=== PATIENT | male | born 1960 | race Caucasian/White ===

== ENCOUNTER 2016-09-16 21:06 | Inpatient (IN) | payer OTHER ==
[2016-09-16 22:00] LABS: BASOPHIL 0.7 % (0-2); EOSINOPHIL 1.5 % (0-5); HCT 30.1 % (42.0-52.0); LYMPHOCYTE 26.3 % (15-48); MCH 32.4 pg (25.0-31.0); MCHC 36.5 g/dL (32.0-36.0); MCV 88.8 fL (78.0-100.0); MONOCYTE 20.5 % (0-12); MPV 8.6 fL (6.0-9.5); PLT 174 K/uL (150-400); RBC 3.39 M/uL (4.70-6.00); RDW 20.9 % (11.5-14.0); WBC 4.1 K/uL (4.0-10.5)
[2016-09-16 22:19] LABS: ANISOCYTOSIS SLIGHT; BAND 3 % (0-10); EOSINOPHIL(M) 2 % (0-5); LYMPHOCYTE(M) 23 % (15-48); MONOCYTE(M) 15 % (0-12); NEUTROPHILS(M) 57 % (41-80); NRBC 1; PLATELET ESTIMATE NORMAL; PLATELET MORPHOLOGY NORMAL; TOTAL CELL COUNT 100
[2016-09-16 22:20] LABS: POLYCHROMASIA SLIGHT
[2016-09-16 22:21] LABS: BILIRUBIN - TOTAL 0.9 mg/dL (0.1-1.0); CREATININE 1.2 mg/dL (0.7-1.2); GLOBULIN (CALCULATION) 2.7 g/dL (2.2-4.2); POTASSIUM 2.7 mmol/L (3.5-5.1); TOTAL PROTEIN 6.7 g/dL (6.4-8.3)
[2016-09-16 22:23] LABS: LACTIC ACID 2.8 mmol/L (0.5-2.2)
[2016-09-16 23:17] LABS: BILIRUBIN NEGATIVE (NEGATIVE); BLOOD NEGATIVE Ery/uL (NEGATIVE); CLARITY CLEAR (CLEAR); COLOR YELLOW (YELLOW); GLUCOSE (U) NORMAL (NORMAL); KETONE (U) NEGATIVE (NEGATIVE); LEUKOCYTES NEGATIVE Leu/uL (NEGATIVE); NITRITE NEGATIVE (NEGATIVE); PROTEIN NEGATIVE (NEGATIVE)
[2016-09-17 04:50] LABS: BASOPHIL 0 % (0-2); EOSINOPHIL 0 % (0-5); HCT 27.7 % (42.0-52.0); HGB 9.9 g/dl (13.2-18.0); LYMPHOCYTE 17.5 % (15-48); MCH 32.1 pg (25.0-31.0); MCHC 35.7 g/dL (32.0-36.0); MCV 89.9 fL (78.0-100.0); MONOCYTE 2.4 % (0-12); MPV 8.7 fL (6.0-9.5); NEUTROPHIL 80.1 % (41-80); PLT 157 K/uL (150-400); RBC 3.08 M/uL (4.70-6.00); RDW 21.1 % (11.5-14.0); WBC 2.5 K/uL (4.0-10.5)
[2016-09-17 05:04] LABS: CREATININE 1.1 mg/dL (0.7-1.2); POTASSIUM 2.8 mmol/L (3.5-5.1)
[2016-09-18 04:42] LABS: HCT 24.8 % (42.0-52.0); HGB 8.6 g/dl (13.2-18.0); MCH 31.6 pg (25.0-31.0); MCHC 34.7 g/dL (32.0-36.0); MCV 91.2 fL (78.0-100.0); MPV 8.9 fL (6.0-9.5); RBC 2.72 M/uL (4.70-6.00); RDW 21.8 % (11.5-14.0)
[2016-09-18 04:50] LABS: INR 1.46 (0.9-1.2); PROTHROMBIN TIME 17.2 SECONDS (11.7-14.0)
[2016-09-18 04:57] LABS: POTASSIUM 3.1 mmol/L (3.5-5.1)
[2016-09-18] MEDS ORDERED: ELAVIL25 MG PO (13:54)
[2016-09-18] MEDS ORDERED: LOZOL2.5 MG PO (13:54)
[2016-09-18] MEDS ORDERED: EFFEXOR XR75 MG PO (13:54)
[2016-09-18] MEDS ORDERED: PROTONIX 40MG T40 MG PO (13:55)
[2016-09-18] MEDS ORDERED: FOSAMAX70 MG PO (13:55)
[2016-09-18] MEDS ORDERED: ZYRTEC10 MG PO (13:55)
[2016-09-18] MEDS ORDERED: DICYCLOMINE HCL20 MG PO (13:55)
[2016-09-18] MEDS ORDERED: LOPRESSOR50 MG PO (13:55)
[2016-09-18] MEDS ORDERED: COMPAZINE10 MG PO (13:56)
[2016-09-18] MEDS ORDERED: PHENERGAN25 M1 PO (13:56)
[2016-09-18] MEDS ORDERED: KLONOPIN0.5 MG PO (13:56)
[2016-09-18] MEDS ORDERED: BENADRYL25 MG PO (13:56)
[2016-09-18] MEDS ORDERED: FLONASE ALLER15.8 ML (13:56)
[2016-09-18] MEDS ORDERED: XARELTO15 MG PO (13:57)
== END 2016-09-18 14:15 | disposition home or self-care (01) | DRG 176 ==
LOC: FER 21:06 → FTCU 09-17 01:35
PROVIDERS: Emergency Medicine Emergency Medical Services; ADMIT Internal Medicine
DX: I26.99 Other pulmonary embolism without acute cor pulmonale (principal); E87.3 Alkalosis; C34.92 Malignant neoplasm of unspecified part of left bronchus or lung; B19.10 Unspecified viral hepatitis B without hepatic coma; I10 Essential (primary) hypertension; D63.8 Anemia in other chronic diseases classified elsewhere; E87.6 Hypokalemia; K21.9 Gastro-esophageal reflux disease without esophagitis; M81.0 Age-related osteoporosis without current pathological fracture; K58.9 Irritable bowel syndrome, unspecified; Z79.899 Other long term (current) drug therapy; Z88.8 Allergy status to other drugs, medicaments and biological substances; Z87.891 Personal history of nicotine dependence
CPT/HCPCS: 36415; 36600; 71010; 71275; 80048; 80053; 81003; 82803; 83605; 84484; 85025; 85610; 87040; 87088; 93005; 93970; 94640; 94760; 96372; J1170; J2930; Q9967

== ENCOUNTER 2020-07-05 14:47 | Emergency (ER) | payer MEDICARE ==
[~2020-07-05 14:47] MED LIST: AUGMENTIN 875-1 EACH PO; BACTRIM DS TAB1 EACH PO; BENADRYL25 MG PO; BUMEX1 MG PO; COMPAZINE10 MG PO; DICYCLOMINE HCL20 MG PO; EFFEXOR XR75 MG PO; ELAVIL25 MG PO; FLONASE ALLER15.8 ML; FOSAMAX70 MG PO; IRON325 M1 PO; K-DUR20 MEQ PO; KLONOPIN0.5 MG PO; LASIX40 MG PO; LIPITOR20 MG PO; LOPRESSOR50 MG PO; LOZOL2.5 MG PO; MIRAPEX0.25 MG PO; PHENERGAN25 M1 PO; PLAVIX75 MG PO; PREDNISONE 20MG20 MG PO; PROAIR HFA8.5 GM INH; PROTONIX 40MG T40 MG PO; SINGULAIR10 MG PO; TESSALON PERLE100 M1 PO; XARELTO15 MG PO; ZYRTEC10 MG PO
[2020-07-05 16:23] LABS: BASOPHIL 0.8 % (0-2); BILIRUBIN NEGATIVE (NEGATIVE); BLOOD NEGATIVE Ery/uL (NEGATIVE); CLARITY CLEAR (CLEAR); COLOR YELLOW (YELLOW); EOSINOPHIL 2.1 % (0-5); GLUCOSE (U) TRACE mg/dL (NORMAL); HCT 46.3 % (42.0-52.0); HGB 15.2 g/dl (13.2-18.0); LEUKOCYTES NEGATIVE Leu/uL (NEGATIVE); LYMPHOCYTE 15.9 % (15-48); MCHC 32.8 g/dL (32.0-36.0); MCV 85.3 fL (78.0-100.0); MONOCYTE 6.7 % (0-12); MPV 10.4 fL (6.0-9.5); NEUTROPHIL 73.3 % (41-80); NITRITE NEGATIVE (NEGATIVE); NRBC 0; PLT 170 K/uL (150-400); PROTEIN NEGATIVE (NEGATIVE); RBC 5.43 M/uL (4.70-6.00); RDW 14.3 % (11.5-14.0); UROBILINOGEN 0.2 mg/dL (0.2-1.0); WBC 8.7 K/uL (4.0-10.5)
[2020-07-05 16:39] LABS: ALBUMIN 3.5 g/dL (3.4-5.0); BILIRUBIN - TOTAL 0.2 mg/dL (0.2-1.0); BUN/CREAT RATIO (CALC) 15.5 RATIO; CREATININE 0.84 mg/dL (0.67-1.17); GLOBULIN (CALCULATION) 3.5 g/dL; POTASSIUM 4.8 mmol/L (3.5-5.1)
== END 2020-07-05 17:49 | disposition home or self-care (01) ==
LOC: FER 14:47
PROVIDERS: Nurse Practitioner Family
DX: T78.49XA Other allergy, initial encounter (principal); R06.02 Shortness of breath; R55 Syncope and collapse; R22.0 Localized swelling, mass and lump, head; E11.9 Type 2 diabetes mellitus without complications; I10 Essential (primary) hypertension; Z85.118 Personal history of other malignant neoplasm of bronchus and lung; Z95.5 Presence of coronary angioplasty implant and graft; Z88.8 Allergy status to other drugs, medicaments and biological substances; Z88.6 Allergy status to analgesic agent; Z88.5 Allergy status to narcotic agent; X58.XXXA Exposure to other specified factors, initial encounter
CPT/HCPCS: 36415; 71046; 80053; 81003; 85025; 93005; J1200; J2930

== ENCOUNTER 2021-08-01 22:10 | Emergency (ER) | payer MEDICARE ==
[2021-08-01 23:24] LABS: BASOPHIL 0.5 % (0-2); EOSINOPHIL 1.6 % (0-5); HCT 45.7 % (42.0-52.0); HGB 15.4 g/dl (13.2-18.0); LYMPHOCYTE 25.5 % (15-48); MCH 29.7 pg (25.0-31.0); MCHC 33.7 g/dL (32.0-36.0); MCV 88.2 fL (78.0-100.0); MONOCYTE 8.5 % (0-12); MPV 10.5 fL (6.0-9.5); NEUTROPHIL 63.3 % (41-80); NRBC 0; PLT 148 K/uL (150-400); RBC 5.18 M/uL (4.70-6.00); WBC 7.9 K/uL (4.0-10.5)
[2021-08-01 23:40] LABS: BUN/CREAT RATIO (CALC) 12.5 RATIO; CREATININE 1.12 mg/dL (0.67-1.17); POTASSIUM 4.7 mmol/L (3.5-5.1)
== END 2021-08-02 01:44 | disposition home or self-care (01) ==
LOC: FER 22:10
PROVIDERS: Internal Medicine
DX: R07.89 Other chest pain (principal); E11.9 Type 2 diabetes mellitus without complications; I25.10 Atherosclerotic heart disease of native coronary artery without angina pectoris; Z88.6 Allergy status to analgesic agent; Z88.8 Allergy status to other drugs, medicaments and biological substances
CPT/HCPCS: 36415; 71045; 80048; 83880; 84484; 85025; 93005